=== PATIENT | male | born 1990 | race Caucasian/White ===

== ENCOUNTER 2018-12-09 09:54 | Emergency (ER) | payer BC ==
[2018-12-09] MEDS ORDERED: diphenhydrAMINE 50 MG/ML SDV IVPUSH ONE (10:23)
[2018-12-09] MEDS ORDERED: Metoclopramide 10 MG/2 ML SDV IVPUSH ONE (10:23)
--- NOTE | 2018-12-09 10:24 | EDM.PDOC ---
ED HPI GENERAL MEDICAL PROBLEM - General Chief Complaint: Gastrointestinal Problem Stated Complaint: VOMITING AND DIARRHEA Time Seen by Provider: 12/09/18 10:19 Source of Information: Reports: Patient History Limitations: Reports: No Limitations - History of Present Illness INITIAL COMMENTS - FREE TEXT/NARRATIVE: 28-year-old male presents the ED with acute onset of nausea vomiting and large- volume watery stool loss starting at 0430 hrs. this morning. Some chills but no defined fever. Continues to dry heaving retching of bilious material. No hematemesis and no blood in the stool. Diffuse lower abdominal cramping pain. He believes he made got into some bad food yesterday afternoon. Girlfriend also got mild diarrhea but no vomiting. Does very weak, lightheaded, dizzy. Onset: Today Onset Date: 12/09/18 Onset Time: 04:30 Duration: Hour(s): Location: Reports: Abdomen (Recurrent nausea vomiting and large-volume watery stool loss.) Quality: Reports: Other Severity: Moderate (Occasional diffuse lower abdominal cramping pain) Improves with: Reports: None Worsens with: Reports: None Context: Reports: Other. Denies: Activity, Exercise, Lifting, Sick Contact, Trauma Associated Symptoms: Reports: Fever/Chills (Chills but no fever), Loss of Appetite, Malaise, Nausea/Vomiting, Weakness, Other (Large-volume watery stool losses.). Denies: Confusion (Possible exposure to bad food.), Chest Pain, Cough , cough w sputum Treatments [employer]: Reports: Other (see below) (None.) - Related Data Allergies Allergy/AdvReac Type Severity Reaction Status Date / Time No Known Allergies Allergy Verified 12/09/18 10:05 Home Meds: Home Meds Dicyclomine [Bentyl] 20 mg PO Q6H PRN #5 tablet 12/09/18 [Rx] Levothyroxine [Levothroid] 137 mcg PO DAILY 12/09/18 [History] Ondansetron [Zofran] 4 mg BUCCAL Q6H PRN #6 tab 12/09/18 [Rx] Past Medical History Endocrine/Metabolic History: Reports: Hypothyroidism (He is on supplementation.) Social & Family History - Living Situation & Occupation Living situation: Reports: Occupation: Unemployed ED ROS GENERAL - Review of Systems Review Of Systems: See Below Constitutional: Reports: Chills, Malaise, Weakness, Fatigue, Decreased Appetite , Weight Loss. Denies: Fever HEENT: Reports: No Symptoms Respiratory: Reports: No Symptoms Cardiovascular: Reports: No Symptoms Endocrine: Reports: No Symptoms GI/Abdominal: Reports: Abdominal Pain, Diarrhea, Nausea, Vomiting (Bilious emesis at least 6 times.). Denies: Hematemesis, Hematochezia (5-6 large-volume watery stool losses without blood) : Reports: No Symptoms Musculoskeletal: Reports: No Symptoms Skin: Reports: No Symptoms Neurological: Reports: Dizziness Psychiatric: Reports: No Symptoms ED EXAM, GI/ABD - Physical Exam Exam: See Below Exam Limited By: No Limitations General Appearance: Alert, WD/WN, Moderate Distress (Very palate in color.), Other (Vital signs show is afebrile cool to touch is nitrate is 22/m. BP 10- 165. Sats are 96% on room air.) Eyes: Bilateral: Pale Conjunctiva Throat/Mouth: Other Head: Atraumatic, Normocephalic Neck: Normal Inspection, Supple, Non-Tender, Full Range of Motion. No: Lymphadenopathy (L), Lymphadenopathy (R) Respiratory/Chest: Lungs Clear, Normal Breath Sounds, No Accessory Muscle Use, Respiratory Distress Cardiovascular: Normal Peripheral Pulses, Regular Rate, Rhythm, No Edema, No Gallop, No Murmur, No Rub GI/Abdominal Exam: Soft (Bowel sounds are quite active in all 4 quadrants.), No Organomegaly (Mild tenderness upper abdomen in the epigastrium presumably for recurrent vomiting.), No Distention, No Abnormal Bruit, No Mass, Pelvis Stable, Tender, Abnormal Bowel Sounds, Other (No surgical scars) (Male) Exam: No Hernia Extremities: Normal Inspection, Normal Range of Motion, Non-Tender, No Pedal Edema Neurological: Alert, Oriented, CN II-XII Intact, Normal Cognition Psychiatric: Normal Affect, Normal Mood Skin Exam: Cool, Pallor (Very pale in color.) Course - Vital Signs Last Recorded V/S: Last Vital Signs Temp 36.6 C 12/09/18 10:02 Pulse 64 12/09/18 10:02 Resp 22 H 12/09/18 10:02 BP 102/65 12/09/18 10:02 Pulse Ox 96 12/09/18 10:02 - Orders/Labs/Meds Orders: Active Orders 24 hr Category Date Time Status Dextrose 5%-0.9% NaCl [Dextrose 5%-Normal Saline] 1,000 Med 12/09/18 10:30 Active ml IV ASDIRECTED Dextrose 5%-0.9% NaCl [Dextrose 5%-Normal Saline] 1,000 Med 12/09/18 11:30 Active ml IV ASDIRECTED Ketorolac [Toradol] Med 12/09/18 10:30 Active 30 mg IVPUSH ONETIME Medication Orders Dextrose/Sodium Chloride (Dextrose 5%-Normal Saline) 1,000 mls @ 999 mls/hr IV ASDIRECTED BUZZ Last Admin: 12/09/18 10:27 Dose: 999 mls/hr Dextrose/Sodium Chloride (Dextrose 5%-Normal Saline) 1,000 mls @ 999 mls/hr IV ASDIRECTED UBZZ Last Admin: 12/09/18 11:43 Dose: 999 mls/hr Ketorolac Tromethamine (Toradol) 30 mg IVPUSH ONETIME BUZZ Last Admin: 12/09/18 10:32 Dose: 30 mg Labs: Laboratory Tests 12/09/18 12/09/18 Range/Units 10:10 10:10 WBC 11.43 H (4.23-9.07) K/mm3 RBC 5.83 (4.63-6.08) M/mm3 Hgb 17.2 (13.7-17.5) gm/L Hct 50.7 (40.1-51.0) % MCV 87.0 (79.0-92.2) fl MCH 29.5 (25.7-32.2) pg MCHC 33.9 (32.2-35.5) g/dl RDW Std Deviation 40.9 (35.1-43.9) fL Plt Count 251 (163-337) K/mm3 MPV 9.6 (9.4-12.3) fl Neutrophils % (Manual) 85 H (40-60) % Band Neutrophils % 2 (0-10) % Lymphocytes % (Manual) 5 L (20-40) % Atypical Lymphs % 0 % Monocytes % (Manual) 8 (2-10) % Eosinophils % (Manual) 0 L (0.8-7.0) % Basophils % (Manual) 0 L (0.2-1.2) Platelet Estimate Adequate Plt Morphology Comment See note RBC Morph Comment Normal Sodium 142 (136-145) mEq/L Potassium 4.4 (3.5-5.1) mEq/L Chloride 105 (98-107) mEq/L Carbon Dioxide 25 (21-32) mEq/L Anion Gap 16.4 H (5-15) BUN 20 H (7-18) mg/dL Creatinine 1.7 H (0.7-1.3) mg/dL Est Cr Clr Drug Dosing 69.30 mL/min Estimated GFR (MDRD) 48 (>60) mL/min BUN/Creatinine Ratio 11.8 L (14-18) Glucose 138 H (74-106) mg/dL Calcium 9.4 (8.5-10.1) mg/dL Magnesium 1.6 L (1.8-2.4) mg/dl Total Bilirubin 0.6 (0.2-1.0) mg/dL AST 18 (15-37) U/L ALT 38 (16-63) U/L Alkaline Phosphatase 62 (46-116) U/L C-Reactive Protein 0.5 (<1.0) mg/dL Total Protein 7.7 (6.4-8.2) g/dl Albumin 4.5 (3.4-5.0) g/dl Globulin 3.2 gm/dL Albumin/Globulin Ratio 1.4 (1-2) Amylase 52 (25-115) U/L Meds: Medications Generic Name Dose Route Start Last Admin Trade Name Freq PRN Reason Stop Dose Admin Dextrose/Sodium Chloride 1,000 mls @ 999 mls/hr 12/09/18 10:30 12/09/18 10:27 Dextrose 5%-Normal Saline IV 999 mls/hr ASDIRECTED BUZZ Administration Dextrose/Sodium Chloride 1,000 mls @ 999 mls/hr 12/09/18 11:30 12/09/18 11:43 Dextrose 5%-Normal Saline IV 999 mls/hr ASDIRECTED BUZZ Administration Ketorolac Tromethamine 30 mg 12/09/18 10:30 12/09/18 10:32 Toradol IVPUSH 30 mg ONETIME BUZZ Administration Discontinued Medications Generic Name Dose Route Start Last Admin Trade Name Freq PRN Reason Stop Dose Admin Diphenhydramine HCl 25 mg 12/09/18 10:23 12/09/18 10:34 Benadryl IVPUSH 12/09/18 10:24 25 mg ONETIME ONE Administration Metoclopramide HCl 7.5 mg 12/09/18 10:23 12/09/18 10:30 Reglan IVPUSH 12/09/18 10:24 7.5 mg ONETIME ONE Administration - Radiology Interpretation Free Text/Narrative:: 28-year-old male presents to the ED with acute onset of nausea vomiting and diarrhea starting at 0430 hrs. this morning. He estimates he's vomited about 6 times of bilious material. He said at least 6 large volume diarrhea stool losses without blood. Feeling lightheaded dizzy and generalized very weak. He is very pale in color. Benign abdominal examination. Respiratory distress 2/m heart rate was 90/m. BP 102/60. Plan IV D5 normal saline at open. Will give Reglan 7.5 mg IV with Benadryl 25 mg IV and Toradol 30 mg IV for nausea vomiting and abdominal pain relief. Routine labs to be obtained. - Re-Assessments/Exams Free Text/Narrative Re-Assessment/Exam: 12/09/18 11:26 Labs reveal a slightly elevated white count of 11.43 with a left shift of 85% neutrophils and 2% bands. Hemoglobin is 17.2 with hematocrit of 50.7 indicating some degree of hemoconcentration. Platelet count is 251,000. Sodium 142 with a potassium of 4.4. Chloride 105 with a bicarbonate 25. Anion gap is mildly elevated at 16.4. Bicarb is 20 with a creatinine of 1.7. GFR is 48. Glucose 138. Calcium 9.4. Magnesium slightly low at 1.6. Liver function is normal. C-reactive protein is 0.5. Total protein is 7.7. Albumin fraction 4.5. Amylase is 52. 12/09/18 11:31 I will also give him a second liter of IV fluids D5 normal saline. 12/09/18 12:32 nearly completed 2 L of IV fluid for replacement therapy. Discharged home on a clear fluid diet such as Gatorade Powerade intimated beds to crackers and perhaps soup broth later tonight. Zofran 4 mg sublingually every 4-6 hours as needed for nausea relief. No dairy products and no apple juice or grape juice until stools are formed back up. Departure - Departure Time of Disposition: 12:33 Disposition: Home, Self-Care 01 Condition: Fair Clinical Impression: Gastroenteritis - Discharge Information *PRESCRIPTION DRUG MONITORING PROGRAM REVIEWED*: Not Applicable *COPY OF PRESCRIPTION DRUG MONITORING REPORT IN PATIENT SHELLY: Not Applicable Prescriptions: Dicyclomine [Bentyl] 20 mg PO Q6H PRN #5 tablet PRN Reason: Abdominal cramps/diarrhea Ondansetron [Zofran] 4 mg BUCCAL Q6H PRN #6 tab PRN Reason: nausea or vomiting Instructions: Diarrhea, Adult, [id number], Viral Gastroenteritis, Adult, Easy -to-Read Referrals: Rebecca Monroe MD [Primary Care Provider] - Forms: ED Department Discharge Additional Instructions: Evaluation in possibly foodborne illness. This precipitated acute onset of nausea vomiting and diarrhea with large volume stool loss. This in turn precipitated dehydration. Treatment in the emergency room this morning was intravenous fluids 2 L. He also received medication Reglan 7.5 mg to arrest vomiting. Until 25 mg was given as well to prevent any adverse effects of the antinausea medication. He also received Toradol 30 mg IV to relieve abdominal cramping pain. Treatment at home today is clear fluids such as Gatorade or Powerade ideally sipping fluids 5 ounces per hour. Zofran 4 mg of the tongue every 4 hours as needed to relieve any nausea or vomiting. Bentyl 20 mg every 6 hours to help reduce until cramping pain and the frequency of diarrhea. Hungry try soda crackers. If tolerated may then try some jam on bread or toast. If tolerated may advance to broth soup or turkey rice last chicken noodle-type soup. You should avoid all dairy products and no apple juice or grape juice until stools are formed back up. Note given to excuse her from work today and tomorrow. - My Orders Last 24 Hours: My Active Orders 12/09/18 10:30 Dextrose 5%-0.9% NaCl [Dextrose 5%-Normal Saline] 1,000 ml IV ASDIRECTED Ketorolac [Toradol] 30 mg IVPUSH ONETIME 12/09/18 11:30 Dextrose 5%-0.9% NaCl [Dextrose 5%-Normal Saline] 1,000 ml IV ASDIRECTED - Assessment/Plan Last 24 Hours: My Active Orders 12/09/18 10:30 Dextrose 5%-0.9% NaCl [Dextrose 5%-Normal Saline] 1,000 ml IV ASDIRECTED Ketorolac [Toradol] 30 mg IVPUSH ONETIME 12/09/18 11:30 Dextrose 5%-0.9% NaCl [Dextrose 5%-Normal Saline] 1,000 ml IV ASDIRECTED
[2018-12-09] MEDS ORDERED: Dextrose 5%-0.9% NaCl 1,000 ML IV SCH ×2 (10:30→11:30)
[2018-12-09] MEDS ORDERED: Ketorolac 30 MG/ML SDV IVPUSH SCH (10:30)
== END 2018-12-09 12:55 | disposition home or self-care (01) ==
LOC: JD.ED 09:54
DX: K52.9 Noninfective gastroenteritis and colitis, unspecified (principal); E03.9 Hypothyroidism, unspecified
CPT/HCPCS: 36415; 80053; 82150; 83735; 85007; 85027; 86140; 96361; 96374; 96375; 99284; J1200; J1885; J2765; J7042